=== PATIENT | female | born 1980 | race Caucasian/White ===

== ENCOUNTER 2017-07-17 14:17 | Emergency (ER) | payer MEDICAID ==
[~2017-07-17] VITALS: Ht 167.6 cm; Wt 72.6 kg
[2017-07-17 14:28] VITALS: BP 107/69
[2017-07-17 14:51] LABS: Basophils # (auto) 0.1 uL; Basophils % (auto) 0.8 % (0.0-2.0); Eosinophils # (auto) 0.1 uL; Eosinophils % (auto) 1.7 % (0.0-7.0); Hemoglobin 11.7 g/dL (12.2-16.2); Lymphocytes # (auto) 2.7 uL; Mean Corpuscular Hemoglobin 33.9 pg (28.0-32.0); Mean Corpuscular Hgb Conc. 34.4 g/dL (32.0-36.0); Mean Corpuscular Volume 98.5 fL (80.0-100.0); Monocytes # (auto) 0.5 uL; Neutrophils # (auto) 4.7 uL; Neutrophils % (auto) 58.5 % (37.0-80.0); Nucleated Red Blood Cells % 0.1 %; Platelet Count (auto) 367 10^3/uL (140-450); Red Blood Cells 3.45 10^6/uL (4.0-5.20); Red Cell Distribution Width 13.3 % (11.8-14.3); White Blood Cell 8.1 10^3/uL (4.4-10.8)
[2017-07-17 15:37] LABS: Albumin 3.8 g/dL (3.4-5.0); BUN/Creatinine Ratio 9.2; Bilirubin, Total 0.2 mg/dL (0.2-1.0); Magnesium 2.5 mg/dL (1.6-2.6); Potassium 4.2 mmol/L (3.5-5.1); Total Protein 7.4 g/dL (6.4-8.2)
== END 2017-07-17 21:09 | disposition left against medical advice (07) ==
LOC: ER 14:17
DX: R07.89 Other chest pain (principal); R11.2 Nausea with vomiting, unspecified; Z53.21 Procedure and treatment not carried out due to patient leaving prior to being seen by health care provider
CPT/HCPCS: 36415; 71046; 80053; 83735; 84484; 85025; 93005

== ENCOUNTER 2018-04-10 13:56 | Emergency (ER) | payer MEDICAID ==
[~2018-04-10] VITALS: Ht 170.2 cm; Wt 69.9 kg
[2018-04-10 14:04] VITALS: BP 143/82
[2018-04-10] MEDS ORDERED: FLUORESCEIN SOD 1 MG TEST STRIP ONE (15:43)
[2018-04-10] MEDS ORDERED: FLUORESCEIN SOD 1 MG TEST STRIP RIGHTEYE ONE (15:45)
[2018-04-10] MEDS ORDERED: TETRACAINE HCL 0.5% OPTH(EYE) SOLN 4ML RIGHTEYE ONE (15:45)
== END 2018-04-10 16:15 | disposition home or self-care (01) ==
LOC: ER 13:56
DX: H57.89 Other specified disorders of eye and adnexa (principal); F17.210 Nicotine dependence, cigarettes, uncomplicated; Z90.710 Acquired absence of both cervix and uterus; Z88.5 Allergy status to narcotic agent
CPT/HCPCS: 70450

== ENCOUNTER 2018-09-07 17:53 | Emergency (ER) | payer MEDICAID ==
[~2018-09-07] VITALS: Ht 170.2 cm; Wt 72.6 kg
[2018-09-07 18:03] VITALS: BP 122/75
[2018-09-07 18:55] LABS: Urine Bacteria FEW /hpf (None Seen); Urine Blood Negative /uL (Negative); Urine Specific Gravity 1.012 (1.001-1.035); Urine WBC 1 /hpf (0 - 5)
[2018-09-07 19:39] LABS: Basophils # (auto) 0.1 uL; Basophils % (auto) 1.3 % (0.0-2.0); Eosinophils # (auto) 0.1 uL; Eosinophils % (auto) 1.6 % (0.0-7.0); Hematocrit 34.7 % (36.0-46.0); Hemoglobin 11.7 g/dL (12.2-16.2); Lymphocytes # (auto) 3.5 uL; Mean Corpuscular Hemoglobin 32.2 pg (28.0-32.0); Mean Corpuscular Hgb Conc. 33.7 g/dL (32.0-36.0); Mean Corpuscular Volume 95.6 fL (80.0-100.0); Monocytes # (auto) 0.5 uL; Monocytes % (auto) 5.9 % (0.0-12.0); Neutrophils # (auto) 3.5 uL; Neutrophils % (auto) 46.2 % (37.0-80.0); Nucleated Red Blood Cells % 0.1 %; Platelet Count (auto) 309 10^3/uL (140-450); Red Blood Cells 3.63 10^6/uL (4.0-5.20); Red Cell Distribution Width 12.9 % (11.8-14.3); White Blood Cell 7.7 10^3/uL (4.4-10.8)
[2018-09-07 19:50] LABS: Albumin 3.6 g/dL (3.4-5.0); BUN/Creatinine Ratio 13.2; Calcium 9.2 mg/dL (8.5-10.1); Magnesium 2.2 mg/dL (1.6-2.6); Potassium 4.4 mmol/L (3.5-5.1)
[2018-09-07 20:02] LABS: Bilirubin, Total 0.2 mg/dL (0.2-1.0); Total Protein 7.2 g/dL (6.4-8.2)
== END 2018-09-08 00:54 | disposition left against medical advice (07) ==
LOC: ER 18:00
DX: R10.12 Left upper quadrant pain (principal); R10.32 Left lower quadrant pain; R11.10 Vomiting, unspecified; Z53.21 Procedure and treatment not carried out due to patient leaving prior to being seen by health care provider
CPT/HCPCS: 36415; 74176; 80053; 81001; 82150; 83690; 83735; 85025

== ENCOUNTER 2020-05-13 21:56 | Emergency (ER) | payer MEDICAID, OTHER ==
[~2020-05-13] VITALS: Ht 170.2 cm; Wt 76.7 kg
[2020-05-14 02:19] VITALS: BP 124/88
== END 2020-05-14 04:04 | disposition home or self-care (01) ==
LOC: ER 21:56
DX: S82.61XA Displaced fracture of lateral malleolus of right fibula, initial encounter for closed fracture (principal); F17.210 Nicotine dependence, cigarettes, uncomplicated; Z88.5 Allergy status to narcotic agent; W22.8XXA Striking against or struck by other objects, initial encounter; Y93.89 Activity, other specified; Y92.89 Other specified places as the place of occurrence of the external cause; Y99.8 Other external cause status
CPT/HCPCS: 29515; 73590; 73610

== ENCOUNTER 2021-03-26 11:41 | Emergency (ER) | payer MEDICAID ==
[~2021-03-26] VITALS: Ht 170.2 cm; Wt 68.9 kg
[2021-03-26] MEDS ORDERED: MORPHINE SULFATE 4 MG/ML SYR/VIAL IV ONE (12:00)
[2021-03-26] MEDS ORDERED: SODIUM CHLORIDE 0.9% 500 ML IVB ONE (12:00)
[2021-03-26] MEDS ORDERED: ONDANSETRON HCL 4 MG/2 ML VIAL IV ONE (12:00)
[2021-03-26 13:02] LABS: Basophils # (auto) 0.1 10 ^3/uL (0-0.2); Basophils % (auto) 0.5 % (0.0-2.0); Eosinophils # (auto) 0.2 10 ^3/uL (0-0.8); Eosinophils % (auto) 1.4 % (0.0-7.0); Hematocrit 36.1 % (36.0-46.0); Hemoglobin 12.3 g/dL (12.2-16.2); Lymphocytes # (auto) 2.3 10 ^3/uL (0.4-5.4); Lymphocytes % (auto) 21.9 % (10.0-50.0); Mean Corpuscular Hgb Conc. 34.2 g/dL (32.0-36.0); Mean Corpuscular Volume 93.6 fL (80.0-100.0); Monocytes # (auto) 0.5 10 ^3/uL (0-1.3); Monocytes % (auto) 5.1 % (0.0-12.0); Neutrophils # (auto) 7.5 10 ^3/uL (1.6-8.6); Neutrophils % (auto) 71.1 % (37.0-80.0); Red Blood Cells 3.86 10^6/uL (4.0-5.20); Red Cell Distribution Width 13.1 % (11.8-14.3); White Blood Cell 10.5 10^3/uL (4.4-10.8)
[2021-03-26 13:14] LABS: Calcium 9.7 mg/dL (8.5-10.1)
[2021-03-26 13:24] LABS: BUN/Creatinine Ratio 13.8; Bilirubin, Total 0.3 mg/dL (0.2-1.0); Total Protein 8.3 g/dL (6.4-8.2)
[2021-03-26 14:30] LABS: Urine Bacteria FEW /hpf (None Seen); Urine Blood Negative /uL (Negative); Urine Specific Gravity 1.014 (1.001-1.035); Urine WBC 3 /hpf (0 - 5)
[2021-03-26 16:00] VITALS: BP 119/70
== END 2021-03-26 16:10 | disposition home or self-care (01) ==
LOC: ER 11:41
DX: K92.2 Gastrointestinal hemorrhage, unspecified (principal); F17.210 Nicotine dependence, cigarettes, uncomplicated; Z90.710 Acquired absence of both cervix and uterus; Z88.0 Allergy status to penicillin; Z88.5 Allergy status to narcotic agent
CPT/HCPCS: 36415; 74176; 80053; 81001; 83690; 85025; 96360; 96361; 99284; J7040

== ENCOUNTER 2024-12-19 09:01 | Inpatient (IN) | payer MEDICAID ==
[~2024-12-19] VITALS: Ht 170.2 cm; Wt 83.9 kg
[2024-12-19 09:54] LABS: Urine Bacteria None Seen /hpf (None Seen)
[2024-12-19 10:13] LABS: Urine Blood Negative /uL (Negative); Urine Clarity Clear (Clear); Urine Color Dark-Yellow (Yellow); Urine Protein, UAD Negative (Negative); Urine Specific Gravity 1.015 (1.001-1.035); Urine Squamous Epithelial Cell FEW /hpf (<5); Urine Urobilinogen Normal (Negative); Urine WBC 1 /HPF (0-5); Urine pH 5.5 (5.0-9.0)
[2024-12-19 10:26] LABS: Potassium 4.7 mmol/L (3.5-5.1); Sodium 143 mmol/L (136-145)
[2024-12-19 10:27] LABS: Anion Gap 7 (5-15); Carbon Dioxide 26 mmol/L (20-31)
[2024-12-19 10:32] LABS: BUN/Creatinine Ratio 10.9 (10.0-20.0); Basophils # (auto) 0.1 10 ^3/uL (0-0.2); Basophils % (auto) 0.4 % (0.0-2.0); Blood Urea Nitrogen 10 mg/dL (9-23); Eosinophils # (auto) 0.1 10 ^3/uL (0-0.8); Glucose 91 mg/dL (74-106); Hematocrit 35.6 % (36.0-46.0); Hemoglobin 12.2 g/dL (12.2-16.2); Lymphocytes # (auto) 3.2 10 ^3/uL (0.4-5.4); Lymphocytes % (auto) 25.5 % (10.0-50.0); Mean Corpuscular Hemoglobin 32.3 pg (28.0-32.0); Mean Corpuscular Hgb Conc. 34.3 g/dL (32.0-36.0); Mean Corpuscular Volume 94.3 fL (80.0-100.0); Monocytes # (auto) 0.7 10 ^3/uL (0-1.3); Monocytes % (auto) 5.6 % (0.0-12.0); Neutrophils # (auto) 8.4 10 ^3/uL (1.6-8.6); Neutrophils % (auto) 67.5 % (37.0-80.0); Platelet Count (auto) 349 10^3/uL (140-450); Red Blood Cells 3.78 10^6/uL (4.0-5.20); Red Cell Distribution Width 13.8 % (11.8-14.3); White Blood Cell 12.4 10^3/uL (4.4-10.8)
--- NOTE | 2024-12-19 10:34 | ED.PDOC ---
General HPI Comments This is a 44 year old female presenting to the ED with chief complaint of abdominal pain and dysuria. Patient reports that she has been experiencing LLQ abdominal pain with associated dysuria, nausea, vomiting, and difficulty urinating for the past 4 days. Patient relays that she has taken Ibuprofen with no relief in her symptoms noted. Patient denies any diarrhea, fever, chills, hematuria, flank pain, chest pain, or SOB. Chief Complaint: Abdominal Pain Time Seen by MD: 10:30 Primary Care Provider: FLOR Swartz notes: Nurses Notes, Medications, Allergies Allergies: Coded Allergies: Codeine (Verified Allergy, Unknown, 04/05/16) Penicillins (Verified Allergy, Unknown, 03/26/21) Information Source: Patient Mode of Arrival: Ambulatory Severity: Moderate Timing: Days Duration: Since onset Prehospital treatment: None Onset: Spontaneous Symptoms: Dysuria, Inability to void History of: None Location: Abdomen Modifying factors: None associated signs and symptoms: Abdominal Pain, Nausea, Vomiting, Dysuria, Inability to Void Past Medical History PAST MEDICAL HISTORY: Anxiety, Cancer Surgical History: Hysterectomy [employer]IAN History: Ovarian Cancer Family History Family History: Reviewed,noncontributory to illness, No family hx of Cancer, No family hx of DM, No family hx of Heart nuha, No family hx of HTN, No family hx ofKidney nuha, No family hx of Liver nuha, No family hx of Lung nuha, No family hx of Stroke Social History Smoker: Cigarettes Alcohol: Occasionally Drugs: Denies Drug Use Lives In: Home Constitutional: denies: chills, diaphoresis, fatigue, fever, malaise, sweats, weakness, others EENTM: denies: blurred vision, double vision, ear bleeding, ear discharge, ear drainage, ear pain, ear ringing, eye pain, eye redness, hearing loss, mouth pain, mouth swelling, nasal discharge, nose bleeding, nose congestion, nose pain, photophobia, tearing, throat pain, throat swelling, voice changes, others Respiratory: denies: cough, hemoptysis, orthopnea, SOB at rest, shortness of breath, SOB with excertion, stridor, wheezing, others Cardiovascular: denies: chest pain, dizzy spells, diaphoresis, Dyspnea on exertion, edema, irregular heart beat, left arm pain, lightheadedness, palpitations, PND, syncope, others Gastrointestinal: reports: abdominal pain, nausea, vomiting; denies: abdomen distended, blood streaked bowels, constipated, diarrhea, dysphagia, difficulty swallowing, hematemesis, melena, poor appetite, poor fluid intake, rectal bleeding, rectal pain, others Genitourinary: reports: dysuria, others (Difficulty to urinate); denies: abnormal vagina bleeding, burning, dyspareunia, flank pain, frequency, hematuria, incontinence, pain, , vagina discharge, urgency Neurological: denies: dizziness, fainting, headache, left sided numbness, left sided weakness, numbness, paresthesia, pre-existing deficit, right sided numbness, right sided weakness, seizure, speech problems, tingling, tremors, weakness, others Musculoskeletal: denies: back pain, gout, joint pain, joint swelling, muscle pain, muscle stiffness, neck pain, others Integumetry: denies: bruises, change in color, change in hair/nails, dryness, laceration, lesions, lumps, rash, wounds, others Allergic/Immunocompromised: denies: Difficulty Healing, Frequent Infections, Hives, Itching, others Hematologic/Lymphatic: denies: anemia, blood clots, easy bleeding, easy brui sing, swollen glands, others Endocrine: denies: excessive hunger, excessive sweating, excessive thirst, ex cessive urination, flushing, intolerance to cold, intolerance to heat, unexplained weight gain, unexplained weight loss, others Psychiatric: denies: anxiety, bipolar disorder, depression, hopeless, panic disorder, schizophrenia, sleepless, suicidal, others All Other Systems: Reviewed and Negative Physical Exam General Appearance: No Apparent Distress, Normal HEENT: Normal ENT Inspection, Pharynx Normal, TMs Normal Neck: Full Range of Motion, Non-Tender, Normal, Normal Inspection Respiratory: Chest Non-Tender, Lungs Clear, No Accessory Muscle Use, No Respiratory Distress, Normal Breath Sounds Cardiovascular: No Edema, No JVD, No Murmur, No Gallop, Normal Peripheral Pulses, Regular Rate/Rhythm Breast Exam: Deferred Gastrointestinal: No Organomegaly, No Pulsatile Mass, Normal Bowel Sounds, Soft, Tenderness (LLQ tenderness to palpation) Genitalia: Deferred Pelvic: Deferred Rectal: Deferred Extremities: No calf tenderness, Normal capillary refill, Normal inspection, Normal range of motion, Non-tender, No pedal edema Musculoskeletal : Apperance: Normal Neurologic: Alert, 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 Was a procedure done?: No Differential Diagnosis Kidney stone (Female): N/A Kidney stone (Male): N/A Penile/Scrotal: N/A Urinary Problem (Male): N/A Urinary Problem (Female): Appendicitis, Pyelonephritis, Urinary retention, UTI, Other (Colitis) X-Ray, Labs, Meds, VS Vital Signs Date Time Temp Pulse Resp B/P (MAP) Pulse Ox O2 Delivery O2 Flow Rate FiO2 12/19/24 11:36 65 19 99/66 12/19/24 11:22 65 20 98 Room Air* 0 21 12/19/24 11:22 97.9 65 19 99/66 (77) 99 97.9 12/19/24 09:30 97.9 66 20 114/72 (86) 99 97.9 Lab Test 12/19/24 10:08 12/19/24 09:35 Range/Units White Blood Count 12.4 H 4.4-10.8 10^3/uL Red Blood Count 3.78 L 4.0-5.20 10^6/uL Hemoglobin 12.2 12.2-16.2 g/dL Hematocrit 35.6 L 36.0-46.0 % Mean Corpuscular Volume 94.3 80.0-100.0 fL Mean Corpuscular Hemoglobin 32.3 H 28.0-32.0 pg Mean Corpuscular Hemoglobin Concent 34.3 32.0-36.0 g/dL Red Cell Distribution Width 13.8 11.8-14.3 % Platelet Count 349 140-450 10^3/uL Mean Platelet Volume 7.3 6.9-10.8 fL Neutrophils (%) (Auto) 67.5 37.0-80.0 % Lymphocytes (%) (Auto) 25.5 10.0-50.0 % Monocytes (%) (Auto) 5.6 0.0-12.0 % Eosinophils (%) (Auto) 1.0 0.0-7.0 % Basophils (%) (Auto) 0.4 0.0-2.0 % Neutrophils # (Auto) 8.4 1.6-8.6 10 ^3/uL Lymphocytes # (Auto) 3.2 0.4-5.4 10 ^3/uL Monocytes # (Auto) 0.7 0-1.3 10 ^3/uL Eosinophils # (Auto) 0.1 0-0.8 10 ^3/uL Basophils # (Auto) 0.1 0-0.2 10 ^3/uL Nucleated Red Blood Cells 0.0 % Sodium Level 143 136-145 mmol/L Potassium Level 4.7 3.5-5.1 mmol/L Chloride Level 110 H 98-107 mmol/L Carbon Dioxide Level 26 20-31 mmol/L Anion Gap 7 5-15 Blood Urea Nitrogen 10 9-23 mg/dL Creatinine 0.92 0.550-1.02 mg/dL Glomerular Filtration Rate Calc 79 >90 mL/min BUN/Creatinine Ratio 10.9 10.0-20.0 Serum Glucose 91 74-106 mg/dL Calcium Level 10.9 H 8.7-10.4 mg/dL Urine Color Dark-yellow Yellow Urine Clarity Clear Clear Urine pH 5.5 5.0-9.0 Urine Specific [place] 1.015 1.001-1.035 Urine Protein Negative Negative Urine Ketones Negative Negative Urine Blood Negative Negative /uL Urine Nitrite Negative Negative Urine Bilirubin Negative Negative Urine Urobilinogen Normal Negative mg/dL Urine Leukocyte Esterase Negative Negative /uL Urine RBC 1 0 - 4 /hpf Urine Microscopic WBC 1 0-5 /HPF Urine Squamous Epithelial Cells Few <5 /hpf Urine Bacteria None seen None Seen /hpf Urine Glucose Normal Normal mg/dL Urine Test Negative Negative Current Medications Medications (Trade) Dose Ordered Sig/Mandeep Route Start Time Stop Time Status Last Admin Sodium Chloride 1,000 ml @ 1,000 mls/hr Q1H ONCE IV 12/19/24 09:45 12/19/24 10:44 DC 12/19/24 11:36 Ondansetron HCl (Zofran) 4 mg ONCE ONCE IV 12/19/24 09:45 12/19/24 09:46 DC 12/19/24 11:35 Morphine Sulfate 4 mg ONCE ONCE IV 12/19/24 09:45 12/19/24 09:46 DC 12/19/24 11:36 Time of 1ST Reevaluation: 11:30 Reevaluation 1ST: Unchanged Patient Education/Counseling: Diagnosis, Treatment Family Education/Counseling: No Family Present Additional Information Previous visits reviewed: 04/09/24 for abdominal pain The following tests were ordered, and results were reviewed by me: CBC, BMP, UA, Preg urine, CT Abd/Pel W/ IV Con Additional Information was gathered from interviewing the following independent historians: None I reviewed and agreed with the following test results read by other providers: CT Abd/Pel W/ IV Con I discussed treatment and results with medical personnel and: patient Comprehensive systems review obtained and negative except for what is stated in the HPI. Departure 1 Departure Time of Disposition: 12:07 (Patient presented with abdominal pain that was concerning for possible appendicits, gastritis, cholecystitis, colitis, gastroenteritis, sbo, or orther possible surgical emergency. Data: 1. I ordered and reviewed the result of at least 3 labs including a CBC, BMP, and Urinalysis. 2. I independently interpreted the following tests: CT Abdoment and Pelvis is concerning for diverticulitis.Risk:This patient has a high risk of morbidity due to further diagnostic testing or treatment and may suffer from an acute abdominal process disorder. Workup reveals diverticulitis and patient should be admitted for further workup. and possible expert consultation. ) Impression: Primary Impression: Acute diverticulitis Additional Impression: Intractable abdominal pain Disposition: 09 ADMITTED INPATIENT Admit to: Med Surg Condition: Guarded Critical Care Note Critical Care Time?: Yes Critical care comment: Intractable abdominal pain Authorized and Performed by: Shola Moser MD Total critical care time: Approximately 38 minutes Due to a high probability of clinically significant, life threatening deterioration, the patient required my highest level of preparedness to intervene emergently and I personally spent this critical care time directly and personally managing the patient. This critical care time included obtaining a history; examining the patient; pulse oximetry; ordering and review of studies; arranging urgent treatment with development of a management plan; evaluation of patient's response to treatment; frequent reassessment; and, discussions with other providers. This critical care time was performed to assess and manage the high probability of imminent, life-threatening deterioration that could result in multi-organ failure. It was exclusive of separately billable procedures and treating other patients and teaching time. Please see my other sections and the rest of the note for further information on patient assessment and treatment. Stability Stability form required: No Heart Score Heart Score: Heart Score Response (Comments) Value History N/A 0 EKG N/A 0 Age N/A 0 Risk Factors N/A 0 Troponin N/A 0 Total 0 I personally scribed for SHOLA MOSER MD ([email or web address]) on 12/19/24 at 10:34. Electronically submitted by Sldae Carlos ([email or web address]). SHOLA MOSER MD Dec 19, 2024 10:34
[2024-12-19 10:36] LABS: Calcium 10.9 mg/dL (8.7-10.4); Chloride 110 mmol/L (98-107)
[2024-12-19 11:22] VITALS: PULSE 65; RESP 20; O2SAT 98
[2024-12-19] MEDS: ONDANSETRON HCL 4 MG/2 ML VIAL IV ONE ×2 (11:35→13:45)
[2024-12-19] MEDS: SODIUM CHLORIDE 0.9% 1,000 ML IV ONE (11:36)
[2024-12-19] MEDS: MORPHINE SULFATE 4 MG/ML SYR/VIAL IV ONE ×2 (11:36→13:46)
[2024-12-19] MEDS: IOHEXOL 300 MG/ML 100ML BOTTLE IJ ONE (11:37)
--- NOTE | 2024-12-19 12:03 | DVH ---
Exam: CT CT AB PEL WITH IV CON ONLY History: llq pain COMPARISON: None Technique: Multidetector spiral CT of the abdomen and pelvis was performed from lung bases to pubic symphysis. Intravenous contrast was administered during this examination. Portal venous imaging was obtained. Axial, coronal and sagittal multiplanar reformats were performed by the technologist on a separate workstation. Radiation Dose : Abdomen/Pelvis: CTDIvol 14.38 mGy, DLP 787.38 mGy*cm. CONTRAST: Type of contrast: Omni 300 Contrast injected: 99 mL Findings: Lung Bases: No acute or significant lung base finding. Normal heart size. No pleural or pericardial effusion. Liver: The liver is normal in size. No focal lesions. Normal hepatic vascular enhancement. Gallbladder and biliary Tree: Unremarkable Spleen: Unremarkable Pancreas: The pancreas is normal in appearance without focal lesions or abnormal enhancement. Adrenal Glands: Unremarkable Kidneys: No hydronephrosis. Calcification or surgical clip along the course of the distal left uret er. Bladder: Unremarkable Bowel: The stomach is grossly normal in appearance. Small bowel and colon are normal in caliber and d istribution. Normal appendix is visualized in the right lower quadrant without findings of appendicit is. Sigmoid diverticulosis with adjacent stranding. Pericolonic fluid collection measuring up to 17 m m. Ascites: Absent Lymphadenopathy: Subcentimeter mesenteric, retroperitoneal, bilateral iliac chain, and bilateral ingu inal lymph nodes are noted. Abdominal wall and Mesentery: Left lower quadrant stranding as above. Vasculature: The visualized abdominal aorta is normal in size and caliber. Abdominal and pelvic vess els demonstrate normal enhancement. Pelvic Organs: The uterus is surgically absent. Musculoskeletal: No aggressive focal bony lesions, acute fractures or dislocation. IMPRESSION: 1. Acute sigmoid diverticulitis. Pericolonic fluid collection measuring up to 17 mm could represent a contained perforation or developing pericolonic abscess. Clinical correlation and continued follow -up is recommended. Collection is likely not drainable due to small size and intimate relationship t o the colon. 2. Mesenteric, retroperitoneal, iliac chain, and inguinal lymphadenopathy could be reactive. Attentio n on follow-up is recommended. 3. Calcification or surgical clip along the course of the distal left ureter. If there is concern fo r a ureteral calculus this could be further evaluated with CT urogram. Radiation optimization: All CT scans at this facility use at least one of these dose optimization mika hniques: Automated exposure control mA and/or kV adjustment per patient size (includes targeted exams where dose is matched to clinical indication) or iterative reconstruction. HS:Y
[2024-12-19] MEDS ORDERED: ONDANSETRON HCL 4 MG/2 ML VIAL IV ONE (12:15)
[2024-12-19] MEDS ORDERED: MORPHINE SULFATE 4 MG/ML SYR/VIAL IV ONE (12:15)
[2024-12-19] MEDS: metroNIDAZOLE 500MG/100ML 100 ML IV ONE (13:00)
[2024-12-19] MEDS: CEFEPIME 2GM/50ML NS 50 ML IV ONE (13:00)
[2024-12-19] MEDS ORDERED: NITROGLYCERIN 0.4 MG SL TAB SL PRN (14:15)
[2024-12-19] MEDS ORDERED: ACETAMINOPHEN 325 MG TAB PO PRN (14:15)
[2024-12-19] MEDS ORDERED: DOCUSATE SOD 100 MG CAP PO PRN (14:15)
--- NOTE | 2024-12-19 14:17 | DVHHP2 ---
History of Present Illness Reason for Visit: Acute diverticulitis History of Present Illness The patient is a 44-year-old female with past medical history of anxiety and ovarian cancer who presented to [facility] ED with complaint of acute abdominal pain. Patient reports symptoms progressively get worse with left lower quadrant abdominal pain associated with dysuria, nausea, vomiting, difficulty urinating for the past 4 days, getting worse today that prompted this visit. Patient was seen and evaluated in the ED, laboratory data shows WBC 12.4, platelets 349, sodium 143, potassium 4.7, BUN 10, creatinine 0.92, glucose 91, calcium 10.9, blood pressure 94/63, heart rate 68, temperature 97.9 F, O2 saturation 98% on room air. Abdomen/pelvis CT revealing acute sigmoid diverticulitis, pericolonic fluid collection measuring up to 17 mm could represent a contained perforation or developing pericolonic abscess. Surgical team will follow the patient. Patient was started on IV antibiotic regimen cefepime, given morphine sulfate 4 mg IV x1, please see medication orders section in the computer. On my assessment, patient denied chest pain, no headache, no dizziness, no shortness of breaths, no diarrhea, no nausea, no vomiting, no fever, no chills. Patient was admitted for further evaluation and medical management. Past Medical History Anxiety, Ovarian Cancer Past Surgical History Hysterectomy Family History Reviewed, noncontributory to the management of this case. Past Social History The patient lives at home, smokes cigarettes, drinks alcohol occasionally, denies illicit drugs abuse. Review of Systems Constitutional: No: Fever, Chills, Sweats, Weakness, Malaise, Other Eyes: No: Pain, Vision change, Conjunctivae inflammation, Eyelid inflammation, Other, Redness ENT: No: Ear pain, Ear discharge, Nose pain, Nose discharge, Nose congestion, Mouth pain, Mouth swelling, Throat pain, Throat swelling, Other Respiratory: No: Cough, Dry, Shortness of breath, SOB with excertion, Wheezing, Hemoptysis, Pleuritic Pain, Sputum, Wheezing, Other Cardiovascular: No: Chest Pain, Palpitations, Orthopnea, Paroxysmal Noc. Dyspnea, Edema, Lt Headedness, Other Gastrointestinal: Nausea, Vomiting, Abdominal Pain; No: Diarrhea, Constipation, Melena, Hematochezia, Other Genitourinary: Dysuria; No Frequency, No Incontinence, No Hematuria, No Retention; Other (Difficulty urinating) Musculoskeletal: No: other, neck pain, shoulder pain, arm pain, back pain, hand pain, leg pain, foot pain Skin: No: Rash, Lesions, Jaundice, Bruising, Other Neurological: No: Weakness, Numbness, Incoordination, Change in speech, Confusion, Seizures, Other Allergies: Coded Allergies: Codeine (Verified Allergy, Unknown, 04/05/16) Penicillins (Verified Allergy, Unknown, 03/26/21) Medications Current Medications Medications Dose Ordered Sig/Mandeep Route Start Time Stop Time Status Last Admin Dose Admin Ceftriaxone Sodium 50 ml @ 100 mls/hr DAILY@09 IV 12/20/24 09:00 UNV Metronidazole 100 ml @ 100 mls/hr Q8HR IV 12/19/24 22:00 UNV Sodium Chloride 10 ml Q8HR IV 12/19/24 22:00 UNV Acetaminophen/ Hydrocodone Bitart 1 tab Q4HP PRN PO 12/19/24 14:15 UNV Ondansetron HCl 4 mg Q4HP PRN IV 12/19/24 14:15 UNV Docusate Sodium 100 mg BIDPRN PRN PO 12/19/24 14:15 UNV Acetaminophen 650 mg Q6HP PRN PO 12/19/24 14:15 UNV Morphine Sulfate 2 mg Q4HPRN PRN IV 12/19/24 14:15 UNV Exam Vital Signs Vital Signs Date Time Temp Pulse Resp B/P (MAP) Pulse Ox O2 Delivery O2 Flow Rate FiO2 12/19/24 13:46 68 17 94/63 12/19/24 12:31 98 12/19/24 11:22 Room Air* 0 21 12/19/24 11:22 97.9 97.9 General Appearance: Alert, Oriented X3, Cooperative, No acute distress HEENT: Atraumatic, PERRLA, EOMI, Mucous membr. moist/pink Respiratory: Clear to auscultation, Normal air movement Cardiovascular: Regular rate, Normal S1, Normal S2, No murmurs Abdominal: Normal bowel sounds, Soft, No hepatospenomegaly, No masses, Other (Reports tenderness) Extremities: No clubbing, No cyanosis, No edema, Normal pulses, No tenderness/swelling Skin: No rashes, No breakdown, No significant lesion Neuro: Normal gait, Normal speech, Strength at 5/5 X4 ext, Normal tone, Sensation intact, Cranial nerves 3-12 NL, Reflexes 2+ Psych/Mental Status: Mental status NL, Mood NL Labs/Xrays Labs Test 12/19/24 10:08 12/19/24 09:35 Range/Units White Blood Count 12.4 H 4.4-10.8 10^3/uL Red Blood Count 3.78 L 4.0-5.20 10^6/uL Hemoglobin 12.2 12.2-16.2 g/dL Hematocrit 35.6 L 36.0-46.0 % Mean Corpuscular Volume 94.3 80.0-100.0 fL Mean Corpuscular Hemoglobin 32.3 H 28.0-32.0 pg Mean Corpuscular Hemoglobin Concent 34.3 32.0-36.0 g/dL Red Cell Distribution Width 13.8 11.8-14.3 % Platelet Count 349 140-450 10^3/uL Mean Platelet Volume 7.3 6.9-10.8 fL Neutrophils (%) (Auto) 67.5 37.0-80.0 % Lymphocytes (%) (Auto) 25.5 10.0-50.0 % Monocytes (%) (Auto) 5.6 0.0-12.0 % Eosinophils (%) (Auto) 1.0 0.0-7.0 % Basophils (%) (Auto) 0.4 0.0-2.0 % Neutrophils # (Auto) 8.4 1.6-8.6 10 ^3/uL Lymphocytes # (Auto) 3.2 0.4-5.4 10 ^3/uL Monocytes # (Auto) 0.7 0-1.3 10 ^3/uL Eosinophils # (Auto) 0.1 0-0.8 10 ^3/uL Basophils # (Auto) 0.1 0-0.2 10 ^3/uL Nucleated Red Blood Cells 0.0 % Sodium Level 143 136-145 mmol/L Potassium Level 4.7 3.5-5.1 mmol/L Chloride Level 110 H 98-107 mmol/L Carbon Dioxide Level 26 20-31 mmol/L Anion Gap 7 5-15 Blood Urea Nitrogen 10 9-23 mg/dL Creatinine 0.92 0.550-1.02 mg/dL Glomerular Filtration Rate Calc 79 >90 mL/min BUN/Creatinine Ratio 10.9 10.0-20.0 Serum Glucose 91 74-106 mg/dL Calcium Level 10.9 H 8.7-10.4 mg/dL Urine Color Dark-yellow Yellow Urine Clarity Clear Clear Urine pH 5.5 5.0-9.0 Urine Specific [place] 1.015 1.001-1.035 Urine Protein Negative Negative Urine Ketones Negative Negative Urine Blood Negative Negative /uL Urine Nitrite Negative Negative Urine Bilirubin Negative Negative Urine Urobilinogen Normal Negative mg/dL Urine Leukocyte Esterase Negative Negative /uL Urine RBC 1 0 - 4 /hpf Urine Microscopic WBC 1 0-5 /HPF Urine Squamous Epithelial Cells Few <5 /hpf Urine Bacteria None seen None Seen /hpf Urine Glucose Normal Normal mg/dL Urine Test Negative Negative PATIENT: DIONTE WILSON ACCT: [id number] UNIT: [id number] : 1980 LOC: ER ROOM / BED: / AGE / SEX: 44 / F ADM STATUS: REG ER SERVICE [id number] ORDERING PHYSICIAN: SHOLA MOSER MD PROCEDURE(s): ABPLIV - CT AB PEL WITH IV CON ONLY REASON: llq pain ORDER NUMBER(s): [id number], ACCESSION NUMBER(s): [id number] Exam: CT CT AB PEL WITH IV CON ONLY History: llq pain COMPARISON: None Technique: Multidetector spiral CT of the abdomen and pelvis was performed from lung bases to pubic symphysis. Intravenous contrast was administered during this examination. Portal venous imaging was obtained. Axial, coronal and sagittal multiplanar reformats were performed by the technologist on a separate workstation. Radiation Dose : Abdomen/Pelvis: CTDIvol 14.38 mGy, DLP 787.38 mGy*cm. CONTRAST: Type of contrast: Omni 300 Contrast injected: 99 mL Findings: Lung Bases: No acute or significant lung base finding. Normal heart size. No pleural or pericardial effusion. Liver: The liver is normal in size. No focal lesions. Normal hepatic vascular enhancement. Gallbladder and biliary Tree: Unremarkable Spleen: Unremarkable Pancreas: The pancreas is normal in appearance without focal lesions or abnormal enhancement. Adrenal Glands: Unremarkable Kidneys: No hydronephrosis. Calcification or surgical clip along the course of the distal left ureter. Bladder: Unremarkable Bowel: The stomach is grossly normal in appearance. Small bowel and colon are normal in caliber and distribution. Normal appendix is visualized in the right lower quadrant without findings of appendicitis. Sigmoid diverticulosis with adjacent stranding. Pericolonic fluid collection measuring up to 17 mm. Ascites: Absent Lymphadenopathy: Subcentimeter mesenteric, retroperitoneal, bilateral iliac chain, and bilateral inguinal lymph nodes are noted. Abdominal wall and Mesentery: Left lower quadrant stranding as above. Vasculature: The visualized abdominal aorta is normal in size and caliber. Abdominal and pelvic vessels demonstrate normal enhancement. Pelvic Organs: The uterus is surgically absent. Musculoskeletal: No aggressive focal bony lesions, acute fractures or dislocation. IMPRESSION: 1. Acute sigmoid diverticulitis. Pericolonic fluid collection measuring up to 17 mm could represent a contained perforation or developing pericolonic abscess. Clinical correlation and continued follow-up is recommended. Collection is likely not drainable due to small size and intimate relationship to the colon. 2. Mesenteric, retroperitoneal, iliac chain, and inguinal lymphadenopathy could be reactive. Attention on follow-up is recommended. 3. Calcification or surgical clip along the course of the distal left ureter. If there is concern for a ureteral calculus this could be further evaluated with CT urogram. Assessment/Plan Assessment/Plan Acute diverticulitis Leukocytosis, unspecified Intractable abdominal pain Intractable nausea and vomiting Plan 1. Admit to med surge unit 2. Breathing treatment 3. Pain control management 4. IV antibiotic management 5. Management of fluids and electrolytes 6. Consultation for surgery 7. Diagnostic test abdomen/pelvis CT 8. DVT prophylaxis on SCDs 9. Repeat labs CBC, CMP in a.m. 10. Home medication reviewed and reconciled 11. Continue with current medical management 12. Treatment plan discussed with patient and RN. Patient verbalized understanding. Plan discussed with: Patient, Other (RN) My Orders Orders - CONG AMADOR DNP Procedure Category Date Status Time Ceftriaxone 1gm/50ml PHA 12/20/24 Logged D5w (Rocephin) 09:00 Metronidazole PHA 12/19/24 Logged 500mg/100ml (Flagyl 22:00 Allergies JENNIFER 12/19/24 In Process 14:11 Code Status CODE 12/19/24 Transmitted 14:11 Sodium Chloride Lock PHA 12/19/24 Logged (Saline Lock Ns) 22:00 Oxygen Per Hour RT 12/19/24 Transmitted 14:11 Hydrocodone-Acet PHA 12/19/24 Logged 5/325mg Tab ([place] 14:15 Ondansetron Hcl PHA 12/19/24 Logged (Zofran) 14:15 Docusate Sodium PHA 12/19/24 Logged Capsule (Colace 14:15 Complete Blood Count LAB 12/20/24 Verified 04:00 Comprehensive LAB 12/20/24 Verified Metabolic Panel 04:00 Condition: Serious JENNIFER 12/19/24 In Process 14:11 Acetaminophen Tablet PHA 12/19/24 Logged (Tylenol Tablet) 14:15 Clear Liq Diet DIET 12/19/24 Transmitted Dinner Bedrest With Bathroom JENNIFER 12/19/24 In Process Privileg 14:11 Morphine Sulfate PHA 12/19/24 Logged Injection 14:15 Sequential JENNIFER 12/19/24 In Process Compression Device Problem List: (1) Acute diverticulitis (2) Leukocytosis, unspecified (3) Intractable abdominal pain (4) Intractable nausea and vomiting Date of Service: Dec 19, 2024 Billing Provider: CONG AMADOR DNP Common Visit Codes: [id number] INP/OBS CARE (HIGH) CONG AMADOR DNP Dec 19, 2024 14:17
[2024-12-19] MEDS ORDERED: MORPHINE SULFATE 4 MG/ML SYR/VIAL IV PRN (14:30)
--- NOTE | 2024-12-19 14:40 | DVHINCON2 ---
Date of service: Dec 19, 2024 Allergies: Coded Allergies: Codeine (Verified Allergy, Unknown, 04/05/16) Penicillins (Verified Allergy, Unknown, 03/26/21) Current Medications Current Medications Medications (Trade) Dose Ordered Sig/Mandeep Route PRN Reason Start Time Stop Time Status Last Admin Ceftriaxone Sodium 50 ml @ 100 mls/hr DAILY@09 IV 12/20/24 09:00 Metronidazole 100 ml @ 100 mls/hr Q8HR IV 12/19/24 22:00 Sodium Chloride (Saline Lock Ns) 10 ml Q8HR IV 12/19/24 22:00 Acetaminophen/ Hydrocodone Bitart ([place] 5/325MG Tab) 1 tab Q4HP PRN PO MODERATE PAIN (4-6 PAIN SCALE) 12/19/24 14:15 Ondansetron HCl (Zofran) 4 mg Q4HP PRN IV NAUSEA / VOMITING 12/19/24 14:15 Docusate Sodium (Colace Capsule) 100 mg BIDPRN PRN PO FOR CONSTIPATION 12/19/24 14:15 Acetaminophen (Tylenol Tablet) 650 mg Q6HP PRN PO PAIN SCALE 1-3 OR TEMP>100.4 12/19/24 14:15 Morphine Sulfate 2 mg Q4HPRN PRN IV SEVERE PAIN (7-10 PAIN SCALE) 12/19/24 14:30 Nitroglycerin (Ntrostat Sublingual) 0.4 mg Q5MINP PRN SL FOR CHEST PAIN 12/19/24 14:15 Morphine Sulfate 2 mg Q30M PRN IV FOR CHEST PAIN 12/19/24 14:30 Vital Signs Vital Signs Date Time Temp Pulse Resp B/P (MAP) Pulse Ox O2 Delivery O2 Flow Rate FiO2 12/19/24 14:29 84 19 110/70 12/19/24 12:31 98 12/19/24 11:22 Room Air* 0 21 12/19/24 11:22 97.9 97.9 Labs/Diagnostic Data Labs Test 12/19/24 10:08 12/19/24 09:35 Range/Units White Blood Count 12.4 H 4.4-10.8 10^3/uL Red Blood Count 3.78 L 4.0-5.20 10^6/uL Hemoglobin 12.2 12.2-16.2 g/dL Hematocrit 35.6 L 36.0-46.0 % Mean Corpuscular Volume 94.3 80.0-100.0 fL Mean Corpuscular Hemoglobin 32.3 H 28.0-32.0 pg Mean Corpuscular Hemoglobin Concent 34.3 32.0-36.0 g/dL Red Cell Distribution Width 13.8 11.8-14.3 % Platelet Count 349 140-450 10^3/uL Mean Platelet Volume 7.3 6.9-10.8 fL Neutrophils (%) (Auto) 67.5 37.0-80.0 % Lymphocytes (%) (Auto) 25.5 10.0-50.0 % Monocytes (%) (Auto) 5.6 0.0-12.0 % Eosinophils (%) (Auto) 1.0 0.0-7.0 % Basophils (%) (Auto) 0.4 0.0-2.0 % Neutrophils # (Auto) 8.4 1.6-8.6 10 ^3/uL Lymphocytes # (Auto) 3.2 0.4-5.4 10 ^3/uL Monocytes # (Auto) 0.7 0-1.3 10 ^3/uL Eosinophils # (Auto) 0.1 0-0.8 10 ^3/uL Basophils # (Auto) 0.1 0-0.2 10 ^3/uL Nucleated Red Blood Cells 0.0 % Sodium Level 143 136-145 mmol/L Potassium Level 4.7 3.5-5.1 mmol/L Chloride Level 110 H 98-107 mmol/L Carbon Dioxide Level 26 20-31 mmol/L Anion Gap 7 5-15 Blood Urea Nitrogen 10 9-23 mg/dL Creatinine 0.92 0.550-1.02 mg/dL Glomerular Filtration Rate Calc 79 >90 mL/min BUN/Creatinine Ratio 10.9 10.0-20.0 Serum Glucose 91 74-106 mg/dL Calcium Level 10.9 H 8.7-10.4 mg/dL Urine Color Dark-yellow Yellow Urine Clarity Clear Clear Urine pH 5.5 5.0-9.0 Urine Specific [place] 1.015 1.001-1.035 Urine Protein Negative Negative Urine Ketones Negative Negative Urine Blood Negative Negative /uL Urine Nitrite Negative Negative Urine Bilirubin Negative Negative Urine Urobilinogen Normal Negative mg/dL Urine Leukocyte Esterase Negative Negative /uL Urine RBC 1 0 - 4 /hpf Urine Microscopic WBC 1 0-5 /HPF Urine Squamous Epithelial Cells Few <5 /hpf Urine Bacteria None seen None Seen /hpf Urine Glucose Normal Normal mg/dL Urine Test Negative Negative Assessment [id number] AFEBRILE VSS ABD SOFT TENDER LLQ AC DIVERTICULITIS CONTAINED PERFORATION KEEP NPO IV ABX CLOSE OBSERVATION DETERMINE THE NEED FOR EMERGENT SURGERY BASED ON ONGOING EVAL Plan discussed with: Patient REJI SCALES MD Dec 19, 2024 14:40
[2024-12-19 15:45] VITALS: PULSE 68; RESP 20; O2SAT 94
[2024-12-19] MEDS: HYDROcodone-ACET 5/325MG TAB PO PRN (16:11)
[2024-12-19 16:32] VITALS: BP 90/62; PULSE 62; RESP 18; TEMP 97.4; O2SAT 100
[2024-12-19] MEDS ORDERED: ATOR20TA50 PO (16:57)
--- NOTE | 2024-12-19 19:09 | DVHINCON2 ---
DATE OF CONSULTATION: 12/19/2024 HISTORY OF PRESENT ILLNESS: This patient is 44 years old, coming in with left lower quadrant pain for the past few days. It got worse, came to the hospital and got admitted. I was asked to see her. No nausea or vomiting. No constipation or diarrhea. No hematemesis or melena. No bleeding per rectum. PAST MEDICAL HISTORY: Ovarian cancer at age 23, got two surgeries regarding that. PAST SURGICAL HISTORY: Hysterectomy. [employer] HISTORY: Ovarian cancer. No diabetes or hypertension. PHYSICAL EXAMINATION: VITAL SIGNS: Afebrile, stable signs with no evidence of pallor, sinus or jaundice. NECK: Supple. Nontender with no thyromegaly or lymphadenopathy. CHEST AND LUNGS: Clear. HEART: Within normal limits. ABDOMEN: Soft, tender in the left lower quadrant with minimal rebound. EXTREMITIES: Unremarkable. NEUROLOGICALLY: Intact. CLINICAL IMPRESSION: The patient has acute diverticulitis with possible contained perforation. At this point, she does not have an acute abdomen that when necessary, acute surgical intervention, the plan would be is to keep her n.p.o. and to manage it conservatively to allow the inflammation to subside and then she can be given a diet. PLAN: At this point, she needs IV antibiotics as well and a possible repeat CT scan of the abdomen and pelvis in 48 hours to determine the need for surgery or ongoing evaluation for conservative management. MD KIP Mccoy/YAMILA TID: [id number] RECEIPT: [id number] cc: Ja Garcia MD
[2024-12-19 21:55] VITALS: BP 117/70; PULSE 68; RESP 18; TEMP 98.3; O2SAT 93
[2024-12-19] MEDS: MORPHINE SULFATE 4 MG/ML SYR/VIAL IV PRN (22:29)
[2024-12-19] MEDS: SODIUM CHLOR 0.9% PF (SALINE LOCK) 10ML VIAL/SYR IV SCH (22:29)
[2024-12-19] MEDS: metroNIDAZOLE 500MG/100ML 100 ML IV SCH (22:29)
[2024-12-20] VITALS (8 sets, daily range): BP systolic 86–107; BP diastolic 42–73; PULSE 67–74; RESP 14–19; TEMP 97.9–98.1; O2SAT 94–100
[2024-12-20 07:09] LABS: Basophils # (auto) 0 10 ^3/uL (0-0.2); Basophils % (auto) 0.3 % (0.0-2.0); Eosinophils # (auto) 0.1 10 ^3/uL (0-0.8); Eosinophils % (auto) 0.8 % (0.0-7.0); Hematocrit 31.2 % (36.0-46.0); Hemoglobin 10.8 g/dL (12.2-16.2); Lymphocytes # (auto) 2.3 10 ^3/uL (0.4-5.4); Lymphocytes % (auto) 18.9 % (10.0-50.0); Mean Corpuscular Hemoglobin 32.6 pg (28.0-32.0); Mean Corpuscular Hgb Conc. 34.7 g/dL (32.0-36.0); Monocytes # (auto) 0.7 10 ^3/uL (0-1.3); Monocytes % (auto) 5.5 % (0.0-12.0); Neutrophils # (auto) 9.1 10 ^3/uL (1.6-8.6); Neutrophils % (auto) 74.5 % (37.0-80.0); Platelet Count (auto) 301 10^3/uL (140-450); Red Blood Cells 3.31 10^6/uL (4.0-5.20); Red Cell Distribution Width 13.5 % (11.8-14.3); White Blood Cell 12.2 10^3/uL (4.4-10.8)
[2024-12-20 07:11] LABS: Alanine Aminotransferase 11 U/L (7-40); Anion Gap 9 (5-15); BUN/Creatinine Ratio 10.1 (10.0-20.0); Calcium 9.3 mg/dL (8.7-10.4); Carbon Dioxide 23 mmol/L (20-31); Glucose 81 mg/dL (74-106); Potassium 3.9 mmol/L (3.5-5.1); Sodium 141 mmol/L (136-145)
[2024-12-20 07:12] LABS: Total Protein 6.5 g/dL (5.7-8.2)
[2024-12-20 07:13] LABS: Aspartate Aminotransferase 11 U/L (13-40); Blood Urea Nitrogen 7 mg/dL (9-23); Chloride 109 mmol/L (98-107)
[2024-12-20 07:14] LABS: Bilirubin, Total 0.4 mg/dL (0.2-1.0)
[2024-12-20 07:42] LABS: Alkaline Phosphatase 87 U/L (46-116)
[2024-12-20] MEDS: ONDANSETRON HCL 4 MG/2 ML VIAL IV PRN (10:04)
[2024-12-20] MEDS: cefTRIAXone 1GM/50ML D5W 50 ML IV SCH (10:08)
[2024-12-20] MEDS: SODIUM CHLORIDE 0.9% 1,000 ML IV SCH (11:15)
--- NOTE | 2024-12-20 11:24 | DVHPN2 ---
Progress Note Date Seen: Dec 20, 2024 Medical Necessity Reason Pt with a Central, PICC or Fol: No Subjective Patient reports: No new complaints Review of Systems: HEENT:Normal, CVS:Normal, RESPIRATORY:Normal, GI:Normal, :Normal, MSK:Normal, NEURO:Normal Objective vital signs Vital Sign Date Time Temp Pulse Resp B/P (MAP) Pulse Ox O2 Delivery O2 Flow Rate FiO2 12/20/24 08:53 98.1 68 19 107/73 (84) 97 98.1 12/19/24 16:32 Room Air* 0 21 Total Intake and Output 12/19/24 12/19/24 12/20/24 15:00 23:00 07:00 Intake Total 1150 ml 100 ml 100 ml Balance 1150 ml 100 ml 100 ml medications Current Medications Medications Dose Ordered Sig/Mandeep Route Start Time Stop Time Status Last Admin Dose Admin Ceftriaxone Sodium 50 ml @ 100 mls/hr DAILY@09 IV 12/20/24 09:00 12/20/24 10:08 100 MLS/HR Metronidazole 100 ml @ 100 mls/hr Q8HR IV 12/19/24 22:00 12/20/24 06:31 100 MLS/HR Sodium Chloride 10 ml Q8HR IV 12/19/24 22:00 12/20/24 06:31 10 ML Acetaminophen/ Hydrocodone Bitart 1 tab Q4HP PRN PO 12/19/24 14:15 12/19/24 16:11 1 TAB Ondansetron HCl 4 mg Q4HP PRN IV 12/19/24 14:15 12/20/24 10:04 4 MG Docusate Sodium 100 mg BIDPRN PRN PO 12/19/24 14:15 Acetaminophen 650 mg Q6HP PRN PO 12/19/24 14:15 Morphine Sulfate 2 mg Q4HPRN PRN IV 12/19/24 14:30 12/19/24 22:29 2 MG Nitroglycerin 0.4 mg Q5MINP PRN SL 12/19/24 14:15 Morphine Sulfate 2 mg Q30M PRN IV 12/19/24 14:30 Examination: GENERAL:Normal, HEENT:Normal, NECK:Normal, LUNGS:Normal, CVS:Normal, ABDOMEN:Normal, MSK:Normal, SKIN:Normal, NEURO:Normal, :Normal laboratory and microbiology Laboratory Tests 12/20/24 06:13 Test 12/20/24 06:13 Range/Units Serum Glucose 81 74-106 mg/dL Problem List/Assessment/Plan Problem List/Assessment/Plan #1 sepsis with acute diverticulitis/?abscess: ct abd with contrast, surg eval, iv antibiotics #2 h/o ovarian cancer advance care planning- full code- time spent 18 mins Plan discussed with: Patient My Orders My Orders Orders - FAMILIA LAUGHLIN MD Procedure Category Date Status Time NS PHA 12/20/24 Verified 11:15 Npo Except Ice Chips JENNIFER 12/20/24 Verified 11:14 Npo (Nothing By DIET 12/20/24 Verified Mouth) Diet Lunch Basic Metabolic Panel LAB 12/21/24 Verified 06:00 Complete Blood Count LAB 12/21/24 Verified 06:00 PTPTT LAB 12/21/24 Verified 04:00 Date of Service: Dec 20, 2024 Billing Provider: FAMILIA LAUGHLIN MD Common Visit Codes: [id number] INP/OBS CARE(HIGH) Secondary Visit Codes: [id number] CARE PLAN 30 MINUTES FAMILIA LAUGHLIN MD Dec 20, 2024 11:24
--- NOTE | 2024-12-20 12:06 | DVHPN2 ---
Progress Note Date Seen: Dec 20, 2024 Medical Necessity Reason Pt with a Central, PICC or Fol: No Objective vital signs Vital Sign Date Time Temp Pulse Resp B/P (MAP) Pulse Ox O2 Delivery O2 Flow Rate FiO2 12/20/24 08:53 98.1 68 19 107/73 (84) 97 98.1 12/20/24 08:00 Room Air* 0 21 Total Intake and Output 12/19/24 12/19/24 12/20/24 15:00 23:00 07:00 Intake Total 1150 ml 100 ml 100 ml Balance 1150 ml 100 ml 100 ml medications Current Medications Medications Dose Ordered Sig/Mandeep Route Start Time Stop Time Status Last Admin Dose Admin Ceftriaxone Sodium 50 ml @ 100 mls/hr DAILY@09 IV 12/20/24 09:00 12/20/24 10:08 100 MLS/HR Metronidazole 100 ml @ 100 mls/hr Q8HR IV 12/19/24 22:00 12/20/24 06:31 100 MLS/HR Sodium Chloride 10 ml Q8HR IV 12/19/24 22:00 12/20/24 06:31 10 ML Acetaminophen/ Hydrocodone Bitart 1 tab Q4HP PRN PO 12/19/24 14:15 12/20/24 11:58 1 TAB Ondansetron HCl 4 mg Q4HP PRN IV 12/19/24 14:15 12/20/24 10:04 4 MG Docusate Sodium 100 mg BIDPRN PRN PO 12/19/24 14:15 Acetaminophen 650 mg Q6HP PRN PO 12/19/24 14:15 Morphine Sulfate 2 mg Q4HPRN PRN IV 12/19/24 14:30 12/19/24 22:29 2 MG Nitroglycerin 0.4 mg Q5MINP PRN SL 12/19/24 14:15 Morphine Sulfate 2 mg Q30M PRN IV 12/19/24 14:30 Sodium Chloride 1,000 ml @ 100 mls/hr Q10H IV 12/20/24 11:15 12/20/24 11:15 100 MLS/HR laboratory and microbiology Laboratory Tests 12/20/24 06:13 Test 12/20/24 06:13 Range/Units Serum Glucose 81 74-106 mg/dL Problem List/Assessment/Plan Problem List/Assessment/Plan AFEBRILE VSS ABD SOFT LESS TENDER CONTINUE CLOSE OBSERVATION KEEP NPO IV ABX NURSE AT BEDSIDE Plan discussed with: Patient REJI SACLES MD Dec 20, 2024 12:06
[2024-12-20] MEDS: HYDROmorphone HCL 2 MG/ML VL/or syr IV PRN (20:13)
[2024-12-21] VITALS (7 sets, daily range): BP systolic 105–141; BP diastolic 60–83; PULSE 61–70; RESP 16–20; TEMP 97.5–98.4; O2SAT 96–99
[2024-12-21 07:12] LABS: Anion Gap 10 (5-15); Carbon Dioxide 21 mmol/L (20-31); Potassium 3.8 mmol/L (3.5-5.1); Sodium 142 mmol/L (136-145)
[2024-12-21 07:14] LABS: Calcium 9.3 mg/dL (8.7-10.4); Chloride 111 mmol/L (98-107)
[2024-12-21 07:15] LABS: Basophils # (auto) 0.1 10 ^3/uL (0-0.2); Basophils % (auto) 0.4 % (0.0-2.0); Eosinophils # (auto) 0.1 10 ^3/uL (0-0.8); Eosinophils % (auto) 0.6 % (0.0-7.0); Hematocrit 30.2 % (36.0-46.0); Hemoglobin 10.3 g/dL (12.2-16.2); Lymphocytes # (auto) 2.5 10 ^3/uL (0.4-5.4); Mean Corpuscular Hemoglobin 32.2 pg (28.0-32.0); Mean Corpuscular Hgb Conc. 34.2 g/dL (32.0-36.0); Mean Corpuscular Volume 94.2 fL (80.0-100.0); Monocytes # (auto) 0.9 10 ^3/uL (0-1.3); Monocytes % (auto) 6.8 % (0.0-12.0); Neutrophils # (auto) 9.2 10 ^3/uL (1.6-8.6); Neutrophils % (auto) 72.2 % (37.0-80.0); Platelet Count (auto) 319 10^3/uL (140-450); Red Cell Distribution Width 13.3 % (11.8-14.3); White Blood Cell 12.7 10^3/uL (4.4-10.8)
[2024-12-21 07:19] LABS: INR 1.02 (0.9-1.15); Partial Thromboplastin Time 32.1 SEC (24.5-34.5); Prothrombin Time 10.8 sec (9.3-11.8)
[2024-12-21 07:26] LABS: Blood Urea Nitrogen 8 mg/dL (9-23); Glucose 66 mg/dL (74-106)
[2024-12-21] MEDS ORDERED: IOHEXOL 300 MG/ML 100ML BOTTLE IJ ONE (09:00)
--- NOTE | 2024-12-21 10:22 | DVH ---
CT CT AB PEL WITH IV CON ONLY INDICATION: diverticular abscess/perforation EXAM DATE: 12/21/2024 08:57 AM COMPARISON: CT CT AB PEL WITH IV CON ONLY on DOS: 12/19/24 RADIATION DOSE: CTDIvol: 13.88 mGy, DLP: 690.79 mGy*cm PROCEDURE: Helical CT images were obtained of the abdomen and pelvis with IV contrast Sagittal and co radha reconstructions are provided. ORAL CONTRAST: None. ADDITIONAL IMAGES / REFORMATS: None All CT s cans at this medical facility are performed using dose modulation techniques as appropriate to a perf ormed exam including the following: Automated exposure control was utilized; adjustment of the MA and /or KV according to patient size; and use of iterative reconstruction technique. FINDINGS: LUNG BASE: Normal. LIVER: Normal. GALLBLADDER AND BILIARY TREE: No calcified gallstones. Normal caliber wall. No intra- or extrahepatic biliary ductal dilation. PANCREAS: Normal. SPLEEN: Normal. BOWEL: Moderate colonic diverticulosis with sigmoid colonic diverticulitis appears improving to prior with the previously mentioned fluid collection decreased in size. Normal appendix. ADRENALS: Normal. KIDNEYS AND URETER: Normal. BLADDER: Normal. REPRODUCTIVE ORGANS: Absent uterus. LYMPH NODES:No lymphadenopathy. PERITONEUM: No ascites or free air. No other fluid collection. VESSELS: Scattered atherosclerotic calcifications are noted. RETROPERITONEUM: Normal. ABDOMINAL WALL: Normal. BONES: Scattered osseous degenerative changes are noted. IMPRESSION: Moderate colonic diverticulosis with sigmoid colonic diverticulitis appears improving to prior with t he previously mentioned fluid collection decreased in size.
--- NOTE | 2024-12-21 11:53 | DVHPN2 ---
Progress Note Date Seen: Dec 21, 2024 Medical Necessity Reason Pt with a Central, PICC or Fol: No Objective vital signs Vital Sign Date Time Temp Pulse Resp B/P (MAP) Pulse Ox O2 Delivery O2 Flow Rate FiO2 12/21/24 07:57 16 97 Room Air* 0 21 12/21/24 07:50 97.5 64 128/80 (96) 97.5 Total Intake and Output 12/20/24 12/20/24 12/21/24 14:59 22:59 06:59 Intake Total 50 ml 100 ml 100 ml Balance 50 ml 100 ml 100 ml medications Current Medications Medications Dose Ordered Sig/Mandeep Route Start Time Stop Time Status Last Admin Dose Admin Ceftriaxone Sodium 50 ml @ 100 mls/hr DAILY@09 IV 12/20/24 09:00 12/20/24 10:08 100 MLS/HR Metronidazole 100 ml @ 100 mls/hr Q8HR IV 12/19/24 22:00 12/21/24 07:19 100 MLS/HR Sodium Chloride 10 ml Q8HR IV 12/19/24 22:00 12/21/24 07:19 10 ML Acetaminophen/ Hydrocodone Bitart 1 tab Q4HP PRN PO 12/19/24 14:15 Hold 12/20/24 11:58 1 TAB Ondansetron HCl 4 mg Q4HP PRN IV 12/19/24 14:15 12/21/24 06:31 4 MG Docusate Sodium 100 mg BIDPRN PRN PO 12/19/24 14:15 Acetaminophen 650 mg Q6HP PRN PO 12/19/24 14:15 Nitroglycerin 0.4 mg Q5MINP PRN SL 12/19/24 14:15 Morphine Sulfate 2 mg Q30M PRN IV 12/19/24 14:30 Sodium Chloride 1,000 ml @ 100 mls/hr Q10H IV 12/20/24 11:15 12/21/24 07:24 100 MLS/HR Hydromorphone HCl 0.25 mg Q4HPRN PRN IV 12/20/24 12:15 12/21/24 06:36 0.25 MG laboratory and microbiology Laboratory Tests 12/21/24 06:14 Test 12/21/24 06:14 Range/Units Serum Glucose 66 L 74-106 mg/dL Problem List/Assessment/Plan Problem List/Assessment/Plan AFEBRILE VSS ABD SOFT LESS TENDER CONTINUE CLOSE OBSERVATION REPEAT CT SCAN IMPROVED DIVERTICULITIS IV ABX ALLOW CLEAR LIQUIDS NURSE AND FAMILY AT BEDSIDE Plan discussed with: Patient My Orders My Orders Orders - REJI SCALES MD Procedure Category Date Status Time Hydromorphone PHA 12/20/24 In Process Injection (Dilaudid 12:15 Dietary Evaluation Review Comments: advance diet when pain subside Expected Outcomes/Goals: gradual wt loss REJI SCALES MD Dec 21, 2024 11:53
--- NOTE | 2024-12-21 19:55 | DVHPN2 ---
Subjective in bed with minimal pain now Reviewed: Labs Changes from previous H/P or p: No Changes Eyes: No Pain, No Vision change, No Conjunctivae inflammation, No Eyelid inflammation, No Other, No Redness ENT: No Ear pain, No Ear discharge, No Nose pain, No Nose discharge, No Nose congestion, No Mouth pain, No Mouth swelling, No Throat pain, No Throat swelling, No Other Cardiovascular: No Chest Pain, No Palpitations, No Orthopnea, No Paroxysmal Noc. Dyspnea, No Edema, No Lt Headedness, No Other Respiratory: No Cough, No Dry, No Shortness of breath, No SOB with excertion, No Wheezing, No Hemoptysis, No Pleuritic Pain, No Sputum, No Other Gastrointestinal: Nausea, Vomiting, Abdominal Pain; No Diarrhea, No Constipation, No Melena, No Hematochezia, No Other Genitourinary: Dysuria; No Frequency, No Incontinence, No Hematuria, No Retention; Other (Difficulty urinating) Musculoskeletal: No other, No neck pain, No shoulder pain, No arm pain, No back pain, No hand pain, No leg pain, No foot pain Skin: No Rash, No Lesions, No Jaundice, No Bruising, No Other Objective Vitals Vital Signs Date Time Temp Pulse Resp B/P (MAP) Pulse Ox O2 Delivery O2 Flow Rate FiO2 12/21/24 17:40 68 18 127/82 12/21/24 17:00 97.9 98 97.9 12/21/24 07:57 Room Air* 0 21 Intake/Output Intake and Output 12/21/24 06:59 Intake Total 250 ml Balance 250 ml Intake Oral 0 ml IV Total 250 ml # Voids 5 Medications Current Medications Medications Dose Ordered Sig/Mandeep Route Start Time Stop Time Status Last Admin Dose Admin Ceftriaxone Sodium 50 ml @ 100 mls/hr DAILY@09 IV 12/20/24 09:00 12/21/24 15:00 100 MLS/HR Metronidazole 100 ml @ 100 mls/hr Q8HR IV 12/19/24 22:00 12/21/24 16:41 100 MLS/HR Sodium Chloride 10 ml Q8HR IV 12/19/24 22:00 12/21/24 14:00 10 ML Acetaminophen/ Hydrocodone Bitart 1 tab Q4HP PRN PO 12/19/24 14:15 Hold 12/20/24 11:58 1 TAB Ondansetron HCl 4 mg Q4HP PRN IV 12/19/24 14:15 12/21/24 15:15 4 MG Docusate Sodium 100 mg BIDPRN PRN PO 12/19/24 14:15 Acetaminophen 650 mg Q6HP PRN PO 12/19/24 14:15 Nitroglycerin 0.4 mg Q5MINP PRN SL 12/19/24 14:15 Morphine Sulfate 2 mg Q30M PRN IV 12/19/24 14:30 Sodium Chloride 1,000 ml @ 100 mls/hr Q10H IV 12/20/24 11:15 12/21/24 17:39 100 MLS/HR Hydromorphone HCl 0.25 mg Q4HPRN PRN IV 12/20/24 12:15 12/21/24 15:15 0.25 MG Laboratory Results Laboratory Tests 12/21/24 06:14 Chemistry Test 12/21/24 06:14 Calcium Level 9.3 mg/dL (8.7-10.4) Coagulation Test 12/21/24 06:14 Prothrombin Time 10.8 sec (9.3-11.8) Prothrombin Time INR 1.02 (0.9-1.15) Activated Partial Thromboplast Time 32.1 SEC (24.5-34.5) Urinalysis Test 12/19/24 09:35 Urine Color Dark-yellow (Yellow) Urine Clarity Clear (Clear) Urine pH 5.5 (5.0-9.0) Urine Specific [place] 1.015 (1.001-1.035) Urine Protein Negative (Negative) Urine Ketones Negative (Negative) Urine Blood Negative /uL (Negative) Urine Nitrite Negative (Negative) Urine Bilirubin Negative (Negative) Urine Urobilinogen Normal mg/dL (Negative) Urine Leukocyte Esterase Negative /uL (Negative) Urine RBC 1 /hpf (0 - 4) Urine Microscopic WBC 1 /HPF (0-5) Urine Squamous Epithelial Cells Few /hpf (<5) Urine Bacteria None seen /hpf (None Seen) Urine Glucose Normal mg/dL (Normal) Urine Test Negative (Negative) Assessment/Plan Assessment/Plan #1 sepsis with acute diverticulitis/?abscess: ct abd with contrast, surg eval, iv antibiotics #2 h/o ovarian cancer Plan discussed with: Patient Date of Service: Dec 21, 2024 Billing Provider: KEENAN CHO MD Common Visit Codes: [id number] INP/OBS CARE(HIGH) KEENAN CHO MD Dec 21, 2024 19:55
[2024-12-22] VITALS (7 sets, daily range): BP systolic 121–144; BP diastolic 67–87; PULSE 55–61; RESP 16–18; TEMP 96.5–98.7; O2SAT 98–100
[2024-12-22 11:00] LABS: Basophils # (auto) 0.1 10 ^3/uL (0-0.2); Basophils % (auto) 0.7 % (0.0-2.0); Eosinophils # (auto) 0.1 10 ^3/uL (0-0.8); Eosinophils % (auto) 1.6 % (0.0-7.0); Hematocrit 31.5 % (36.0-46.0); Hemoglobin 10.7 g/dL (12.2-16.2); Lymphocytes # (auto) 2.9 10 ^3/uL (0.4-5.4); Lymphocytes % (auto) 32.8 % (10.0-50.0); Mean Corpuscular Hemoglobin 32.3 pg (28.0-32.0); Monocytes # (auto) 0.5 10 ^3/uL (0-1.3); Monocytes % (auto) 6.3 % (0.0-12.0); Neutrophils # (auto) 5.1 10 ^3/uL (1.6-8.6); Neutrophils % (auto) 58.6 % (37.0-80.0); Platelet Count (auto) 332 10^3/uL (140-450); Red Blood Cells 3.31 10^6/uL (4.0-5.20); White Blood Cell 8.7 10^3/uL (4.4-10.8)
[2024-12-22 11:13] LABS: Anion Gap 11 (5-15); Carbon Dioxide 21 mmol/L (20-31); Potassium 3.7 mmol/L (3.5-5.1); Sodium 141 mmol/L (136-145)
[2024-12-22 11:14] LABS: Calcium 9.3 mg/dL (8.7-10.4)
[2024-12-22 11:15] LABS: Chloride 109 mmol/L (98-107)
[2024-12-22 11:18] LABS: Glucose 83 mg/dL (74-106)
[2024-12-22 11:22] LABS: BUN/Creatinine Ratio 8.2 (10.0-20.0); Blood Urea Nitrogen < 5 mg/dL (9-23)
--- NOTE | 2024-12-22 14:44 | DVHPN2 ---
Subjective in bed with minimal pain now Reviewed: Labs Changes from previous H/P or p: No Changes Eyes: No Pain, No Vision change, No Conjunctivae inflammation, No Eyelid inflammation, No Other, No Redness ENT: No Ear pain, No Ear discharge, No Nose pain, No Nose discharge, No Nose congestion, No Mouth pain, No Mouth swelling, No Throat pain, No Throat swelling, No Other Cardiovascular: No Chest Pain, No Palpitations, No Orthopnea, No Paroxysmal Noc. Dyspnea, No Edema, No Lt Headedness, No Other Respiratory: No Cough, No Dry, No Shortness of breath, No SOB with excertion, No Wheezing, No Hemoptysis, No Pleuritic Pain, No Sputum, No Other Gastrointestinal: Nausea, Vomiting, Abdominal Pain; No Diarrhea, No Constipation, No Melena, No Hematochezia, No Other Genitourinary: Dysuria; No Frequency, No Incontinence, No Hematuria, No Retention; Other (Difficulty urinating) Musculoskeletal: No other, No neck pain, No shoulder pain, No arm pain, No back pain, No hand pain, No leg pain, No foot pain Skin: No Rash, No Lesions, No Jaundice, No Bruising, No Other Objective Vitals Vital Signs Date Time Temp Pulse Resp B/P (MAP) Pulse Ox O2 Delivery O2 Flow Rate FiO2 12/22/24 13:00 97.8 59 18 135/87 (103) 99 97.8 12/22/24 08:00 Room Air* 0 21 Intake/Output Intake and Output 12/22/24 07:00 Intake Total 3470 ml Output Total 650 ml Balance 2820 ml Intake Oral 1020 ml IV Total 2450 ml Output Urine Total 650 ml # Voids 6 Medications Current Medications Medications Dose Ordered Sig/Mandeep Route Start Time Stop Time Status Last Admin Dose Admin Ceftriaxone Sodium 50 ml @ 100 mls/hr DAILY@09 IV 12/20/24 09:00 12/22/24 08:46 100 MLS/HR Metronidazole 100 ml @ 100 mls/hr Q8HR IV 12/19/24 22:00 12/22/24 05:46 100 MLS/HR Sodium Chloride 10 ml Q8HR IV 12/19/24 22:00 12/22/24 05:46 10 ML Acetaminophen/ Hydrocodone Bitart 1 tab Q4HP PRN PO 12/19/24 14:15 Hold 12/20/24 11:58 1 TAB Ondansetron HCl 4 mg Q4HP PRN IV 12/19/24 14:15 12/22/24 10:08 4 MG Docusate Sodium 100 mg BIDPRN PRN PO 12/19/24 14:15 Acetaminophen 650 mg Q6HP PRN PO 12/19/24 14:15 Nitroglycerin 0.4 mg Q5MINP PRN SL 12/19/24 14:15 Morphine Sulfate 2 mg Q30M PRN IV 12/19/24 14:30 Sodium Chloride 1,000 ml @ 100 mls/hr Q10H IV 12/20/24 11:15 12/21/24 17:39 100 MLS/HR Hydromorphone HCl 0.25 mg Q4HPRN PRN IV 12/20/24 12:15 12/22/24 10:09 0.25 MG Laboratory Results Laboratory Tests 12/22/24 10:46 Chemistry Test 12/22/24 10:46 Calcium Level 9.3 mg/dL (8.7-10.4) Urinalysis Test 12/19/24 09:35 Urine Color Dark-yellow (Yellow) Urine Clarity Clear (Clear) Urine pH 5.5 (5.0-9.0) Urine Specific [place] 1.015 (1.001-1.035) Urine Protein Negative (Negative) Urine Ketones Negative (Negative) Urine Blood Negative /uL (Negative) Urine Nitrite Negative (Negative) Urine Bilirubin Negative (Negative) Urine Urobilinogen Normal mg/dL (Negative) Urine Leukocyte Esterase Negative /uL (Negative) Urine RBC 1 /hpf (0 - 4) Urine Microscopic WBC 1 /HPF (0-5) Urine Squamous Epithelial Cells Few /hpf (<5) Urine Bacteria None seen /hpf (None Seen) Urine Glucose Normal mg/dL (Normal) Urine Test Negative (Negative) Assessment/Plan Assessment/Plan #1 sepsis with acute diverticulitis/?abscess: Repeat CT scan with abscess that is better advance diet today continue IV abx #2 h/o ovarian cancer Plan to dc tomorrow if able to tolerate food Plan discussed with: Patient My Orders Orders - KEENAN CHO MD Procedure Category Date Status Time Complete Blood Count LAB 12/23/24 Verified 05:00 Complete Blood Count LAB 12/24/24 Verified 05:00 Complete Blood Count LAB 12/25/24 Verified 05:00 Complete Blood Count LAB 12/26/24 Verified 05:00 Complete Blood Count LAB 12/27/24 Verified 05:00 Complete Blood Count LAB 12/28/24 Verified 05:00 Complete Blood Count LAB 12/29/24 Verified 05:00 Regular Diet DIET 12/22/24 Transmitted Lunch Date of Service: Dec 22, 2024 Billing Provider: KEENAN CHO MD Common Visit Codes: [id number] INP/OBS CARE(HIGH) KEENAN CHO MD Dec 22, 2024 14:44
--- NOTE | 2024-12-22 23:43 | DVHPN2 ---
Progress Note Date Seen: Dec 22, 2024 Medical Necessity Reason Pt with a Central, PICC or Fol: No Objective vital signs Vital Sign Date Time Temp Pulse Resp B/P (MAP) Pulse Ox O2 Delivery O2 Flow Rate FiO2 12/22/24 21:24 98.5 56 18 121/73 (89) 98 98.5 12/22/24 08:00 Room Air* 0 21 Total Intake and Output 12/21/24 12/21/24 12/22/24 15:00 23:00 07:00 Intake Total 1200 ml 1970 ml 300 ml Output Total 650 ml Balance 1200 ml 1320 ml 300 ml medications Current Medications Medications Dose Ordered Sig/Mandeep Route Start Time Stop Time Status Last Admin Dose Admin Ceftriaxone Sodium 50 ml @ 100 mls/hr DAILY@09 IV 12/20/24 09:00 12/22/24 08:46 100 MLS/HR Metronidazole 100 ml @ 100 mls/hr Q8HR IV 12/19/24 22:00 12/22/24 21:26 100 MLS/HR Sodium Chloride 10 ml Q8HR IV 12/19/24 22:00 12/22/24 21:26 10 ML Acetaminophen/ Hydrocodone Bitart 1 tab Q4HP PRN PO 12/19/24 14:15 Hold 12/20/24 11:58 1 TAB Ondansetron HCl 4 mg Q4HP PRN IV 12/19/24 14:15 12/22/24 18:54 4 MG Docusate Sodium 100 mg BIDPRN PRN PO 12/19/24 14:15 Acetaminophen 650 mg Q6HP PRN PO 12/19/24 14:15 Nitroglycerin 0.4 mg Q5MINP PRN SL 12/19/24 14:15 Morphine Sulfate 2 mg Q30M PRN IV 12/19/24 14:30 Sodium Chloride 1,000 ml @ 100 mls/hr Q10H IV 12/20/24 11:15 12/22/24 23:02 100 MLS/HR Hydromorphone HCl 0.25 mg Q4HPRN PRN IV 12/20/24 12:15 12/22/24 18:53 0.25 MG laboratory and microbiology Laboratory Tests 12/22/24 10:46 Test 12/22/24 10:46 Range/Units Serum Glucose 83 74-106 mg/dL Problem List/Assessment/Plan Problem List/Assessment/Plan AFEBRILE VSS ABD SOFT LESS TENDER CONTINUE CLOSE OBSERVATION REPEAT CT SCAN IMPROVED DIVERTICULITIS IV ABX ALLOW CLEAR LIQUIDS NURSE AND FAMILY AT BEDSIDE Plan discussed with: Patient Dietary Evaluation Review Comments: advance diet when pain subside Expected Outcomes/Goals: gradual wt loss REJI SCALES MD Dec 22, 2024 23:43
[2024-12-23 01:00] VITALS: BP 138/83; PULSE 59; RESP 18; TEMP 97.2; O2SAT 98
[2024-12-23 09:00] VITALS: BP 136/86; PULSE 55; RESP 17; TEMP 98; O2SAT 100
[2024-12-23 09:20] LABS: Basophils # (auto) 0.1 10 ^3/uL (0-0.2); Basophils % (auto) 0.9 % (0.0-2.0); Eosinophils # (auto) 0.1 10 ^3/uL (0-0.8); Eosinophils % (auto) 1.3 % (0.0-7.0); Hematocrit 34.9 % (36.0-46.0); Lymphocytes # (auto) 2.7 10 ^3/uL (0.4-5.4); Lymphocytes % (auto) 35.4 % (10.0-50.0); Mean Corpuscular Hemoglobin 32.5 pg (28.0-32.0); Mean Corpuscular Hgb Conc. 34.4 g/dL (32.0-36.0); Mean Corpuscular Volume 94.4 fL (80.0-100.0); Monocytes # (auto) 0.5 10 ^3/uL (0-1.3); Monocytes % (auto) 6.9 % (0.0-12.0); Neutrophils # (auto) 4.3 10 ^3/uL (1.6-8.6); Neutrophils % (auto) 55.5 % (37.0-80.0); Nucleated Red Blood Cells % 0.1 %; Platelet Count (auto) 375 10^3/uL (140-450); Red Blood Cells 3.69 10^6/uL (4.0-5.20); Red Cell Distribution Width 13.1 % (11.8-14.3); White Blood Cell 7.7 10^3/uL (4.4-10.8)
[2024-12-23 12:48] VITALS: BP 155/90; PULSE 60; RESP 16; TEMP 98.2; O2SAT 100
[2024-12-23] MEDS ORDERED: HYDR-4902 PO (15:12)
[2024-12-23] MEDS ORDERED: AUG875T PO (15:12)
--- NOTE | 2024-12-23 15:31 | DVHPN2 ---
Progress Note Date Seen: Dec 23, 2024 Medical Necessity Reason Pt with a Central, PICC or Fol: No Objective vital signs Vital Sign Date Time Temp Pulse Resp B/P (MAP) Pulse Ox O2 Delivery O2 Flow Rate FiO2 12/23/24 12:48 98.2 60 16 155/90 (111) 100 98.2 12/22/24 20:00 Room Air* 0 21 Total Intake and Output 12/22/24 12/22/24 12/23/24 15:00 23:00 07:00 Intake Total 1070 ml 120 ml Balance 1070 ml 120 ml medications Current Medications Medications Dose Ordered Sig/Mandeep Route Start Time Stop Time Status Last Admin Dose Admin Ceftriaxone Sodium 50 ml @ 100 mls/hr DAILY@09 IV 12/20/24 09:00 12/23/24 10:48 100 MLS/HR Metronidazole 100 ml @ 100 mls/hr Q8HR IV 12/19/24 22:00 12/23/24 06:16 100 MLS/HR Sodium Chloride 10 ml Q8HR IV 12/19/24 22:00 12/23/24 06:16 10 ML Acetaminophen/ Hydrocodone Bitart 1 tab Q4HP PRN PO 12/19/24 14:15 Hold 12/20/24 11:58 1 TAB Ondansetron HCl 4 mg Q4HP PRN IV 12/19/24 14:15 12/23/24 11:13 4 MG Docusate Sodium 100 mg BIDPRN PRN PO 12/19/24 14:15 Acetaminophen 650 mg Q6HP PRN PO 12/19/24 14:15 Nitroglycerin 0.4 mg Q5MINP PRN SL 12/19/24 14:15 Morphine Sulfate 2 mg Q30M PRN IV 12/19/24 14:30 Sodium Chloride 1,000 ml @ 100 mls/hr Q10H IV 12/20/24 11:15 12/23/24 10:48 100 MLS/HR Hydromorphone HCl 0.25 mg Q4HPRN PRN IV 12/20/24 12:15 12/22/24 18:53 0.25 MG laboratory and microbiology Laboratory Tests 12/23/24 08:58 12/22/24 10:46 Test 12/22/24 10:46 Range/Units Serum Glucose 83 74-106 mg/dL Problem List/Assessment/Plan Problem List/Assessment/Plan AFEBRILE VSS ABD SOFT NON TENDER JAMAL SOFT DIET NURSE AND FAMILY AT BEDSIDE CLEARED FOR DISCHARGE Plan discussed with: Patient Dietary Evaluation Review Comments: advance diet when pain subside Expected Outcomes/Goals: gradual wt loss REJI SCALES MD Dec 23, 2024 15:31
[2024-12-23 16:48] VITALS: BP 131/79; PULSE 66; RESP 16; TEMP 97.5; O2SAT 98
[2024-12-23 16:53] VITALS: BP 131/79; PULSE 66; RESP 16; TEMP 97.5; O2SAT 98
--- NOTE | 2024-12-23 18:11 | DVHDS2 ---
Discharge Summary Date of Admission Dec 19, 2024 at 14:15 Date of Discharge: Dec 23, 2024 Labs/Diagnostic Data: Laboratory Results Test 12/23/24 08:58 12/22/24 10:46 12/21/24 06:14 12/20/24 06:13 White Blood Count 7.7 10^3/uL (4.4-10.8) Red Blood Count 3.69 10^6/uL (4.0-5.20) Hemoglobin 12.0 g/dL (12.2-16.2) Hematocrit 34.9 % (36.0-46.0) Mean Corpuscular Volume 94.4 fL (80.0-100.0) Mean Corpuscular Hemoglobin 32.5 pg (28.0-32.0) Mean Corpuscular Hemoglobin Concent 34.4 g/dL (32.0-36.0) Red Cell Distribution Width 13.1 % (11.8-14.3) Platelet Count 375 10^3/uL (140-450) Mean Platelet Volume 7.4 fL (6.9-10.8) Neutrophils (%) (Auto) 55.5 % (37.0-80.0) Lymphocytes (%) (Auto) 35.4 % (10.0-50.0) Monocytes (%) (Auto) 6.9 % (0.0-12.0) Eosinophils (%) (Auto) 1.3 % (0.0-7.0) Basophils (%) (Auto) 0.9 % (0.0-2.0) Neutrophils # (Auto) 4.3 10 ^3/uL (1.6-8.6) Lymphocytes # (Auto) 2.7 10 ^3/uL (0.4-5.4) Monocytes # (Auto) 0.5 10 ^3/uL (0-1.3) Eosinophils # (Auto) 0.1 10 ^3/uL (0-0.8) Basophils # (Auto) 0.1 10 ^3/uL (0-0.2) Nucleated Red Blood Cells 0.1 % Sodium Level 141 mmol/L (136-145) Potassium Level 3.7 mmol/L (3.5-5.1) Chloride Level 109 mmol/L (98-107) Carbon Dioxide Level 21 mmol/L (20-31) Anion Gap 11 (5-15) Blood Urea Nitrogen < 5 mg/dL (9-23) Creatinine 0.61 mg/dL (0.550-1.02) Glomerular Filtration Rate Calc 114 mL/min (>90) BUN/Creatinine Ratio 8.2 (10.0-20.0) Serum Glucose 83 mg/dL (74-106) Calcium Level 9.3 mg/dL (8.7-10.4) Prothrombin Time 10.8 sec (9.3-11.8) Prothrombin Time INR 1.02 (0.9-1.15) Activated Partial Thromboplast Time 32.1 SEC (24.5-34.5) Total Bilirubin 0.4 mg/dL (0.2-1.0) Aspartate Amino Transferase (AST) 11 U/L (13-40) Alanine Aminotransferase (ALT) 11 U/L (7-40) Alkaline Phosphatase 87 U/L (46-116) Total Protein 6.5 g/dL (5.7-8.2) Albumin 4.0 g/dL (3.2-4.8) Test 12/19/24 09:35 Urine Color Dark-yellow (Yellow) Urine Clarity Clear (Clear) Urine pH 5.5 (5.0-9.0) Urine Specific [place] 1.015 (1.001-1.035) Urine Protein Negative (Negative) Urine Ketones Negative (Negative) Urine Blood Negative /uL (Negative) Urine Nitrite Negative (Negative) Urine Bilirubin Negative (Negative) Urine Urobilinogen Normal mg/dL (Negative) Urine Leukocyte Esterase Negative /uL (Negative) Urine RBC 1 /hpf (0 - 4) Urine Microscopic WBC 1 /HPF (0-5) Urine Squamous Epithelial Cells Few /hpf (<5) Urine Bacteria None seen /hpf (None Seen) Urine Glucose Normal mg/dL (Normal) Urine Test Negative (Negative) Other Laboratory Tests 12/23/24 08:58 12/22/24 10:46 Brief Hx & Hospital Course: 44-year-old female with past medical history of anxiety and ovarian cancer who presented to [facility] ED with complaint of acute abdominal pain. Patient reports symptoms progressively get worse with left lower quadrant abdominal pain associated with dysuria, nausea, vomiting, difficulty urinating for the past 4 days, getting worse today that prompted this visit. Patient was seen and evaluated in the ED, laboratory data shows WBC 12.4, platelets 349, sodium 143, potassium 4.7, BUN 10, creatinine 0.92, glucose 91, calcium 10.9, blood pressure 94/63, heart rate 68, temperature 97.9 F, O2 saturation 98% on room air. Abdomen/pelvis CT revealing acute sigmoid diverticulitis, pericolonic fluid collection measuring up to 17 mm could represent a contained perforation or developing pericolonic abscess. Surgical team will follow the patient. Patient was started on IV antibiotic regimen cefepime, given morphine sulfate 4 mg IV x1, please see medication orders section in the computer. On my assessment, patient denied chest pain, no headache, no dizziness, no shortness of breaths, no diarrhea, no nausea, no vomiting, no fever, no chills. Patient was admitted for further evaluation and medical management. Had abscess that improved on IV abx and NPO status, seen by GI and recommended outpatient colonoscopy Condition at Discharge: Good Final Diagnosis/Problems List ACUTE DIVERTICULITIS. BOWEL PERFORATION. sepsis due to acute diverticulitis Discharge Disposition: Home Discharge Instruct/Medications Diet: Regular Activity: No Restrictions, As Tolerated Follow Up/Referral: PCP in 7 days Medications: augmentin, norco Discharge Statement: "Patient was advised to return to the ER or call 911 if any headaches, dizziness, shortness of breath, chest pain, abdominal pain, bleeding, fevers, or worsening of medical condition. Patient was counseled about treatment plan, medications, possible side effects, patientverbalized understanding. All questions were answered to the best of my ability. This discharge took greater then 30 minutes in planning, reviewing documentation, counseling the patient, and discussing with other team members." ASSESSMENT ASSESSMENT Assessment ACUTE DIVERTICULITIS. BOWEL PERFORATION. Date of Service: Dec 23, 2024 Billing Provider: KEENAN CHO MD Common Visit Codes: [id number] DISCH DAY >30min KEENAN CHO MD Dec 23, 2024 18:11
== END 2024-12-23 17:30 | disposition home or self-care (01) | DRG 720 ==
LOC: ER 09:01 → OVERFLOW 14:15 → EAST 21:55
PROVIDERS: ADMIT Hospitalist; ATTEND Hospitalist
DX: A41.9 Sepsis, unspecified organism (principal); K57.20 Diverticulitis of large intestine with perforation and abscess without bleeding; F17.210 Nicotine dependence, cigarettes, uncomplicated; F41.9 Anxiety disorder, unspecified; Z90.710 Acquired absence of both cervix and uterus; Z85.43 Personal history of malignant neoplasm of ovary; Z88.5 Allergy status to narcotic agent; Z88.0 Allergy status to penicillin
CPT/HCPCS: 36415; 74177; 80048; 80053; 81001; 81025; 85025; 85610; 85730; 96361; 96374; 99291; G0378; J0692; J2405; J3490